=== PATIENT | male | born 1965 | race Caucasian/White ===

== ENCOUNTER 2016-12-18 20:34 | Emergency (ER) | payer OTHER ==
[2016-12-18 20:53] VITALS: BP 161/104
[2016-12-18] MEDS ORDERED: Lidocaine 1% 50 ML MDV INJECT ONE (21:10)
[2016-12-18] MEDS ORDERED: Diphtheria,Pertussis(Acell),Tetanus Vaccine 0.5 ML SDV inactive IM ONE (21:10)
--- NOTE | 2016-12-18 21:12 | EDM.PDOC ---
ED HPI Skin/Rash - General Chief Complaint: Laceration Stated Complaint: CUT ON TOP OF HEAD Time Seen by Provider: 12/18/16 21:02 Source: Reports: Patient History Limitations: Reports: No limitations - History of Present Illness INITIAL COMMENTS - FREE TEXT/NARRATIVE: Patient is a 51 y/o male who presents to the E.D. complaining of laceration to the posterior aspect of his head. States today at approximately 230-300 pm he accidentally hit his head on a grapple hook. States he was wearing a baseball cap and hoodie when this occurred. Bleeding was controlled and he continued with work as planned. States this evening looked at the laceration and noted lesly/sutures were required. Laceration has been clean all day. Patient denies neck pain, LOC, n/v, focal neurological deficits, worst headache of his life, or any additional complaints. Tetanus is not up to date. 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 [No Known Home Meds] 12/18/16 12/18/16 Past Medical History - Past Health History Medical/Surgical History: Denies Medical/Surgical History - Past Surgical History GI Surgical History: Reports: Appendectomy Social & Family History - Family History Family Medical History: Noncontributory - Tobacco Use Smoking Status *Q: Never Smoker - Recreational Drug Use Recreational Drug Use: No ED ROS GENERAL - Review of Systems Review Of Systems: See Below Constitutional: Reports: no symptoms GI/Abdominal: Denies: Nausea, Vomiting Musculoskeletal: Denies: neck pain, back pain Skin: Reports: other (Approximately 6 cm laceration to the posterior aspect of the head.) Neurological: Denies: dizziness, headache ED EXAM, SKIN/RASH Exam: See Below Exam Limited By: No limitations General Appearance: alert, WD/WN, no apparent distress Eye Exam: bilateral eye: EOMI, PERRL Ears: hearing grossly normal Nose: normal inspection Throat/Mouth: Normal voice, No airway compromise Neck: normal inspection, supple, non-tender, full range of motion. No: lymphadenopathy (L), lymphadenopathy (R) Respiratory/Chest: no respiratory distress, lungs clear, normal breath sounds Cardiovascular: normal peripheral pulses, regular rate, rhythm Peripheral Pulses: 2+: radial (L) Neurological: alert, oriented, CN II-XII intact, normal cognition, no motor/ sensory deficits Psychiatric: normal affect, normal mood Skin: Warm, Dry, Intact, Normal color Location, Skin: head (6 cm laceration to the posterior aspect of the head) ED SKIN PROCEDURES - Laceration/Wound Repair Occipital Head Lac/wound length in cm: 6 Appearance: subcutaneous, clean Distal NVT: neuro & vascular intact Anesthetic type: local Local anesthesia - Lidocaine (Xylocaine): 1% plain Local anesthesia - Bupivicaine (Marcaine): 0.5% plain Local anesthetic volume: 5cc Skin prep: saline, sterile drape Exploration/Debridement/Repair: wound explored, in a bloodless field, explored to base, no foreign material found Closed with: lesly # of sutures: 21 Drain placement: No Sterile dressing applied: nurse Tetanus status addressed: Yes Complications: No Course - Vital Signs Last Recorded V/S: Last Vital Signs Temp 97.5 F 12/18/16 20:49 Pulse 71 12/18/16 20:49 Resp 16 12/18/16 20:49 BP 161/104 H 12/18/16 20:49 Pulse Ox 98 12/18/16 20:49 - Orders/Labs/Meds Orders: Active Orders 24 hr Category Date Time Status Vaccines to be Administered [RC] PER UNIT ROUTINE Care 12/18/16 21:10 Active Meds: Medications Discontinued Medications Generic Name Dose Route Start Last Admin Trade Name Edmundq PRN Reason Stop Dose Admin Diphtheria/Tetanus/Acell Pertussis 0.5 ml 12/18/16 21:10 12/18/16 21:32 Boostrix IM 12/18/16 21:11 0.5 ml .ONCE ONE Administration Lidocaine HCl 50 ml 12/18/16 21:10 12/18/16 21:32 Xylocaine 1% INJECT 12/18/16 21:11 50 ml ONETIME ONE Administration - Re-Assessments/Exams Free Text/Narrative Re-Assessment/Exam: Ordered lidocaine 1% and TDAP update. Laceration closed with 21 lesly with no complications. Will discharge patient home with instructions as documented. Departure - Departure Time of Disposition: 21:45 Disposition: Home, Self-Care 01 Condition: good Clinical Impression: Occipital scalp laceration Qualifiers: Encounter type: initial encounter Qualified Code(s): S01.01XA - Laceration without foreign body of scalp, initial encounter Instructions: Laceration Care, Adult, [id number], Stitches, Lesly, or Adhesive Wound Closure, [id number] Referrals: PCP,None [Primary Care Provider] - Forms: ED Department Discharge Additional Instructions: Cleanse site twice daily with soap and water, pat dry, apply triple antibiotic ointment to the affected area. Keep area clean and dry. If wearing hat suggest dressing applied over laceration. Followup with a provider at the walk- in clinic in 10 days for staple removal. Return back to the ED as needed for increased swelling, increased pain, drainage, or increased redness. Take Tylenol and ibuprofen in alternating fashion for pain. - My Orders Last 24 Hours: My Active Orders 12/18/16 21:10 Vaccines to be Administered [RC] PER UNIT ROUTINE - Assessment/Plan Last 24 Hours: My Active Orders 12/18/16 21:10 Vaccines to be Administered [RC] PER UNIT ROUTINE
== END 2016-12-18 21:45 | disposition home or self-care (01) ==
LOC: JD.ED 20:34
DX: S01.01XA Laceration without foreign body of scalp, initial encounter (principal); W22.8XXA Striking against or struck by other objects, initial encounter; Y92.009 Unspecified place in unspecified non-institutional (private) residence as the place of occurrence of the external cause; Z23 Encounter for immunization; Z90.49 Acquired absence of other specified parts of digestive tract
CPT/HCPCS: 12002; 90471; 90715; 99282-25; 99283-25